=== PATIENT | female | born 1985 | race Caucasian/White ===

== ENCOUNTER 2024-10-17 16:08 | Emergency (ER) | payer OTHER ==
[2024-10-17 16:15] VITALS: RESP 18; TEMP 98.3
--- NOTE | 2024-10-17 16:29 | ED ---
General Adult HPI - General Chief complaint: Extremity Problem,Nontraumatic Stated complaint: R hip pain Time Seen by Provider: 10/17/24 16:12 Source: patient Mode of arrival: ambulatory Limitations: no limitations - History of Present Illness Initial comments: Patient is a 39-year-old female presents ER today for evaluation of right hip pain. Patient reports that she has a history of alcohol abuse she has been drinking heavily recently her family set her up to go to rehab this morning a car came to her home and picked her up and drove her to [place], this is approximately a [address]. Upon arrival to [place] during her intake the asked her if she was experiencing any pain anywhere they did note that she had bruises patient reports that about 2 weeks ago she had a fall down some stairs but was evaluated at outside hospital with no injuries and has been doing well at home since then. Patient did note that she occasionally gets a stabbing pain in her right lateral hip and at that time they advised her that due to having pain she was not a candidate to be admitted to [facility] and that she would not be admitted today. Patient states she sat outside for a while and they offered to call her an ambulance so she come to the hospital for evaluation and because the patient had nowhere else to go and no wallet with her and no family within 5 hours she agreed to come to the hospital. - Related Data Allergies Allergy/AdvReac Type Severity Reaction Status Date / Time No Known Allergies Allergy Verified 10/17/24 16:29 Review of Systems ROS Statement: Those systems with pertinent positive or pertinent negative responses have been documented in the HPI. ROS Other: All systems not noted in ROS Statement are negative. Past Medical History Past Medical History: No Reported History History of Any Multi-Drug Resistant Organisms: None Reported Past Surgical History: No Surgical Hx Reported Past Psychological History: No Psychological Hx Reported Smoking Status: Unknown if ever smoked Past Alcohol Use History: Abuse, Heavy Past Drug Use History: None Reported General Exam - General Exam Comments Initial Comments: Physical Exam GENERAL: Patient is well-developed and well-nourished. Patient is nontoxic and well-hydrated and is in no distress. HENT: Normocephalic, Atraumatic. EYES: PERRL, EOMI PULMONARY: Unlabored respirations. CARDIOVASCULAR: RRR Warm and well perfused extremities ABDOMEN: Non-distended SKIN: Patient has well-healing bruises over the right lower extremity right upper arm : Deferred NEUROLOGIC: Alert and oriented Normal speech MUSCULOSKELETAL: Moving all extremities with no apparent injury PSYCHIATRIC: No SI/HI Limitations: no limitations Course Vital Signs 10/17/24 10/17/24 16:09 21:25 Temperature 98.3 F Pulse Rate 100 140 H Respiratory 18 18 Rate Blood Pressure 116/61 118/86 O2 Sat by Pulse 97 98 Oximetry Medical Decision Making - Medical Decision Making Was pt. sent in by a medical professional or institution (LOLIS Porter, INSIDE ACCOUNT EXECUTIVE, urgent care, hospital, or fci...) When possible be specific @ -Sent from [facility] Did you speak to anyone other than the patient for history (EMS, parent, family, police, friend...)? What history was obtained from this source @ -EMS Did you review nursing and triage notes (agree or disagree)? Why? @ -I reviewed and agree with nursing and triage notes Were old charts reviewed (outside hosp., previous admission, EMS record, old EKG, old radiological studies, urgent care reports/EKG's, fci records)? Report findings @ -No old charts available for review Differential Diagnosis (chest pain, altered mental status, abdominal pain women, abdominal pain men, vaginal bleeding, weakness, fever, dyspnea, syncope, headache, dizziness, GI bleed, back pain, seizure, CVA, palpatations, mental health)? @ -Differential includes contusion, hematoma, bursitis, fracture, dislocation, septic joint, inflammatory arthritis, arthritis pain EKG interpreted by me (3pts min.). @ -As above X-rays interpreted by me (1pt min.). @ -X-ray of the right hip with no acute findings CT interpreted by me (1pt min.). @ -None done U/S interpreted by me (1pt. min.). @ -None done What testing was considered but not performed or refused? (CT, X-rays, U/S, labs)? Why? @ -None What meds were considered but not given or refused? Why? @ -None Did you discuss the management of the patient with other professionals (professionals i.e. LOLIS Porter, INSIDE ACCOUNT EXECUTIVE, lab, RT, psych nurse, social service liaison, wildlife management professor, teacher, legal compliance officer, case repairer)? Give summary @ -No Was smoking cessation discussed for >3mins.? @ -No Was critical care preformed (if so, how long)? @ -No Were there social determinants of health that impacted care today? How? (Homelessness, low income, unemployed, alcoholism, drug addiction, transportation, low edu. Level, literacy, decrease access to med. care, alf, rehab)? @ -Alcoholism., Transportation, rehab Was there de-escalation of care discussed even if they declined (Discuss DNR or withdrawal of care, Hospice)? DNR status @ -No What co-morbidities impacted this encounter? (DM, HTN, Smoking, COPD, CAD, Cancer, CVA, ARF, Chemo, Hep., AIDS, mental health diagnosis, sleep apnea, morbid obesity)? @ -None Was patient admitted / discharged? Hospital course, mention meds given and route, prescriptions, significant lab abnormalities, going to OR and other pertinent info. @ -Discharged Patient was seen and evaluated physical exam is consistent with a bursitis x-ray was obtained and is negative. Nursing staff contacted [facility] who stated that if the patient was medically cleared they could reevaluate her for possibility of admission into rehab tomorrow. At this time patient is stable for discharge she is welcome to stay on our waiting room overnight to rest and we will ensure transport back to [facility] the morning when they can reevaluate her. Undiagnosed new problem with uncertain prognosis? @ -No Drug Therapy requiring intensive monitoring for toxicity (Heparin, Nitro, Insulin, Cardizem)? @ -No Were any procedures done? @ -No Diagnosis/symptom? @ -Right hip bursitis Acute, or Chronic, or Acute on Chronic? @ -Acute Uncomplicated (without systemic symptoms) or Complicated (systemic symptoms)? @ -Default Side effects of treatment? @ -No Exacerbation, Progression, or Severe Exacerbation? @ -No Poses a threat to life or bodily function? How? (Chest pain, [place], CA, pneumonia, PE, COPD, DKA, ARF, appy, cholecystitis, CVA, Diverticulitis, Homicidal, Suicidal, threat to staff... and all critical care pts) @ -No Disposition Clinical Impression: Bursitis of right hip Disposition: HOME SELF-CARE Condition: Stable Instructions (If sedation given, give patient instructions): Hip Bursitis (ED) Is patient prescribed a controlled substance at d/c from ED?: No Referrals: None,Stated [Primary Care Provider] - 1-2 days
--- NOTE | 2024-10-17 18:35 | XR ---
EXAMINATION TYPE: XR Hip Limited RT DATE OF EXAM: 10/17/2024 6:26 PM COMPARISON: None. CLINICAL INDICATION: Female, 39 years old with history of pain, pain TECHNIQUE: 2 view(s) obtained. FINDINGS: Femoral head articulates with the acetabulum. Joint spaces preserved. No acute fracture or dislocatio n evident. Follow up exams can be performed 7-10 days from acute trauma for continued pain IMPRESSION: 1. No acute osseous abnormality right hip [facility], Workstation: [facility], 10/17/2024 6:32 PM
[2024-10-17 21:27] VITALS: BP 118/86; PULSE 140
== END 2024-10-17 21:25 | disposition home or self-care (01) ==
LOC: EC 16:08
DX: M70.71 Other bursitis of hip, right hip (principal); F10.20 Alcohol dependence, uncomplicated
CPT/HCPCS: 73501; 99283